=== PATIENT | male | born 1955 | race Hispanic/Latino ===

== ENCOUNTER 2021-04-04 10:31 | Emergency (ER) | payer BC, OTHER ==
[~2021-04-04] VITALS: Ht 162.6 cm; Wt 95.3 kg
[2021-04-04 11:26] LABS: BASOPHILS % (AUTO) 0.3 % (0.0-5.0); EOSINOPHILS % (AUTO) 0.4 % (0.0-8.0); HEMATOCRIT 40.9 % (42-54); LYMPHOCYTES % (AUTO) 13.2 % (21.0-51.0); MEAN CORPUSCULAR HEMOGLOBIN 28.6 pg (27.0-33.0); MEAN CORPUSCULAR HGB CONC 32.5 g/dL (32.0-36.0); MONOCYTES % (AUTO) 6.9 % (3.0-13.0); NEUTROPHILS % (AUTO) 78.7 % (40.0-77.0); PLATELET COUNT (AUTO) 188 K/uL (130-400); RED BLOOD CELL COUNT(AUTO) 4.65 MIL/uL (4.50-6.20); RED CELL DISTRIBUTION WIDTH 12.7 % (11.0-15.5); WHITE BLOOD COUNT (AUTO) 14.1 K/uL (4.8-10.8)
[2021-04-04 11:36] LABS: CREATININE 0.9 mg/dL (0.5-1.5)
[2021-04-04] MEDS ORDERED: PRED20TA3 PO (12:53)
[2021-04-04 13:07] VITALS: BP 118/68
== END 2021-04-04 13:31 | disposition home or self-care (01) ==
LOC: EDH 10:31
DX: R07.89 Other chest pain (principal); M17.12 Unilateral primary osteoarthritis, left knee; I10 Essential (primary) hypertension; E78.00 Pure hypercholesterolemia, unspecified
CPT/HCPCS: 36415; 71045; 73562; 80048; 84484; 85025; 93005